=== PATIENT | male | born 1985 | race Two or more races ===

== ENCOUNTER 2018-06-09 09:28 | Emergency (ER) | payer SELFPAY ==
--- NOTE | 2018-06-09 09:50 | NUR ---
Pt to 34 from lobby
[2018-06-09] MEDS ORDERED: RISP2TAB3 PO (10:21)
[2018-06-09] MEDS ORDERED: GERD MEDICATION (10:21)
--- NOTE | 2018-06-09 10:25 | NUR ---
PT TO ED FOR ETOH DETOX, POSSIBLE WITHDRAWALS. PT IS ALSO SELF REPORTED HYPERMANIC AND ANXIOUS. CONNECTED TO MONITORS. VSS. EDMD ASSESSMENT COMPLETE. ORDERS RECEIVED. LABS DRAWN. AWAITING RESULTS.
[2018-06-09] MEDS ORDERED: LORazepam 1MG TABLET ONE (10:29)
[2018-06-09] MEDS ORDERED: LORazepam 1MG TABLET PO ONE (10:30)
[2018-06-09 10:40] LABS: BASOPHILS # (AUTO) 0.05 x10^3/uL (0-0.1); BASOPHILS % (AUTO) 1 % (0-1); EOSINOPHILS # (AUTO) 0.09 x10^3/uL (0-0.4); EOSINOPHILS % (AUTO) 1 % (1-7); LYMPHOCYTES # (AUTO) 2.03 x10^3/uL (1-3.4); LYMPHOCYTES % (AUTO) 19 % (22-44); MD NO; MEAN CORPUSCULAR HGB CONC 34.3 g/dL (33.2-36.2); MEAN CORPUSCULAR VOLUME 96.2 fL (81-97); MEAN PLATELET VOLUME 8.2 fL (7.4-10.4); MONOCYTES # (AUTO) 0.86 x10^3/uL (0.2-0.8); MONOCYTES % (AUTO) 8 % (2-9); NEUTROPHILS % (AUTO) 72 % (42-75); PLATELET COUNT 216 x10^3/uL (130-400); RED BLOOD COUNT 5.04 x10^6/uL (4.38-5.82); RED CELL DISTRIBUTION WIDTH 14.1 % (9.4-14.8)
[2018-06-09 10:50] LABS: ALBUMIN 3.7 g/dL (3.4-5.0); ANION GAP 9 mmol/L (5-15); CALCIUM 8.3 mg/dL (8.5-10.1); CHLORIDE 107 mmol/L (98-107)
[2018-06-09 10:54] LABS: ALANINE AMINOTRANSFERASE 183 U/L (12-78); ALKALINE PHOSPHATASE 161 U/L (45-117); BILIRUBIN,TOTAL 1.2 mg/dL (0.2-1.0); CREATININE 0.63 mg/dL (0.7-1.3)
--- NOTE | 2018-06-09 11:01 | NUR ---
all results back at this time. chart up for recheck.
[2018-06-09 11:20] VITALS: BP 139/83
[2018-06-09] MEDS ORDERED: MAALOX/HYOSCYAMINE/LIDOCAINE 45 ML BTL PO ONE (11:30)
[2018-06-09] MEDS ORDERED: MAALOX/HYOSCYAMINE/LIDOCAINE 45 ML BTL ONE (11:36)
== END 2018-06-09 12:35 | disposition home or self-care (01) ==
LOC: ED 10:45
DX: F10.239 Alcohol dependence with withdrawal, unspecified (principal); R45.1 Restlessness and agitation; F41.9 Anxiety disorder, unspecified; F31.9 Bipolar disorder, unspecified
CPT/HCPCS: 36415; 80053; 83690; 85025; 99283

== ENCOUNTER 2019-05-08 21:23 | Emergency (ER) | payer MEDICAID ==
[~2019-05-08] VITALS: Ht 177.8 cm; Wt 96.3 kg
[~2019-05-08 21:23] MED LIST: GERD MEDICATION; RISP2TAB3 PO
[2019-05-08] MEDS ORDERED: LORazepam 2 MG/ML, 1ML IVPush ONE ×2 (22:00→23:00)
[2019-05-08] MEDS ORDERED: SODIUM CHLORIDE 0.9% 1,000ML IVBOLUS ONE ×2 (22:00→23:00)
[2019-05-08] MEDS ORDERED: LORazepam 2 MG/ML, 1ML ONE (22:02)
[2019-05-08] MEDS ORDERED: OXYcodone/APAP 10/325MG TABLET ONE (22:04)
[2019-05-08 22:14] LABS: ALANINE AMINOTRANSFERASE 276 U/L (12-78); ALBUMIN 3.7 g/dL (3.4-5.0); ANION GAP 11 mmol/L (5-15); CALCIUM 8.6 mg/dL (8.5-10.1); CHLORIDE 101 mmol/L (98-107)
[2019-05-08 22:15] LABS: BASOPHILS # (AUTO) 0.03 x10^3/uL (0-0.1); BASOPHILS % (AUTO) 0 % (0-1); EOSINOPHILS # (AUTO) 0.06 x10^3/uL (0-0.4); EOSINOPHILS % (AUTO) 1 % (1-7); LYMPHOCYTES # (AUTO) 1.14 x10^3/uL (1-3.4); LYMPHOCYTES % (AUTO) 10 % (22-44); MD NO; MEAN CORPUSCULAR HEMOGLOBIN 31.9 pg (27.5-34.5); MEAN CORPUSCULAR HGB CONC 33.9 g/dL (33.2-36.2); MEAN CORPUSCULAR VOLUME 93.9 fL (81-97); MEAN PLATELET VOLUME 9.4 fL (7.4-10.4); MONOCYTES # (AUTO) 0.88 x10^3/uL (0.2-0.8); MONOCYTES % (AUTO) 8 % (2-9); NEUTROPHILS # (AUTO) 8.99 x10^3/uL (1.8-6.8); NEUTROPHILS % (AUTO) 81 % (42-75); PLATELET COUNT 189 x10^3/uL (130-400); RED CELL DISTRIBUTION WIDTH 14.1 % (9.4-14.8)
[2019-05-08 22:17] LABS: ALKALINE PHOSPHATASE 186 U/L (45-117); BILIRUBIN,TOTAL 1.7 mg/dL (0.2-1.0); CREATININE 0.89 mg/dL (0.7-1.3); TOTAL PROTEIN 8.6 g/dL (6.4-8.2)
[2019-05-08 22:18] LABS: SALICYLATE LEVEL < 1.7 mg/dL (2.8-20.0)
--- NOTE | 2019-05-09 00:06 | NUR ---
Pt got up from bed and removed his PIV in the process.
[2019-05-09 00:29] LABS: AMPHETAMINE SCREEN, URINE Positive (Negative); BARBITURATE SCREEN, URINE Negative (Negative); BENZODIAZEPINE SCREEN, URINE Positive (Negative); CANNABINOID SCREEN, URINE Positive (Negative); COCAINE SCREEN, URINE Negative (Negative); METHADONE SCREEN, URINE Negative (Negative); OPIATE SCREEN, URINE Negative (Negative)
[2019-05-09] MEDS ORDERED: ZIPRASIDONE 20 MG INJ IM ONE ×4 (01:13→02:00)
--- NOTE | 2019-05-09 01:37 | NUR ---
pt sitting up on gurney, restless, diaphoretic and anxious. monitors in place, siderail sup x2, call light within reach
--- NOTE | 2019-05-09 01:51 | NUR ---
pt medicated per mar
--- NOTE | 2019-05-09 03:07 | NUR ---
Pt now sleeping.
[2019-05-09 06:04] VITALS: BP 97/77
--- NOTE | 2019-05-09 06:55 | NUR ---
report received from lucina rouse.
--- NOTE | 2019-05-09 08:00 | NUR ---
pt amb to br and back to room with steady gait.
== END 2019-05-09 08:08 | disposition home or self-care (01) ==
LOC: ED 05-09 01:12
DX: F10.129 Alcohol abuse with intoxication, unspecified (principal); F15.129 Other stimulant abuse with intoxication, unspecified; F12.10 Cannabis abuse, uncomplicated; Z72.9 Problem related to lifestyle, unspecified; Y90.0 Blood alcohol level of less than 20 mg/100 ml
CPT/HCPCS: 36415; 80053; 80307; 85025; 93005; 96372; 96374; 96376; 99285; J2060; J3486; J7030

== ENCOUNTER 2019-11-16 08:59 | Emergency (ER) | payer MEDICAID ==
[~2019-11-16] VITALS: Ht 177.8 cm; Wt 98.0 kg
--- NOTE | 2019-11-16 09:20 | NUR ---
BIB [facility] FOR FLANK PAIN, PAINFUL URINATION, AND DETOX SYMPTOMS. PT WORKED UP FOR ALL SYMPTOMS YESTERDAY BTReinaldo FAITH. PT ON LATEX SPOOLER, BP AND SPO2. SPEAKING CLEARLY, IN FULL SENTENCES, AMBULATES EVENLY, ABLE TO AMBULATE INDEPENDENTLY TO BATHROOM FOR UA. CHANGED IN ROOM INDEPENDENTLY. IN GOWN, SIDE RAILS UP, BLANKET IN PLACE, RESIDENT AT BEDSIDE FOR ASSESSMENT.
--- NOTE | 2019-11-16 09:55 | NUR ---
PT REPORT FROM HUGH BUSTILLO. PT CARE TO BE ASSUMED
[2019-11-16] MEDS ORDERED: THIAMINE 100MG TABLET ONE (09:58)
[2019-11-16] MEDS ORDERED: LORazepam 1MG TABLET ONE (09:59)
[2019-11-16] MEDS ORDERED: ONDANSETRON 2MG/ML, 2ML ONE (09:59)
[2019-11-16] MEDS ORDERED: FAMOTIDINE 20 MG/2 ML ONE (09:59)
[2019-11-16] MEDS ORDERED: PANTOPRAZOLE 40 MG IV ONE (09:59)
[2019-11-16] MEDS ORDERED: SODIUM CHLORIDE 0.9% 1,000ML IVBOLUS ONE (10:00)
[2019-11-16] MEDS ORDERED: SODIUM CHLORIDE FLUSH 10ML SYR IVF ONE (10:00)
[2019-11-16] MEDS ORDERED: LORazepam 1MG TABLET PO ONE (10:00)
[2019-11-16] MEDS ORDERED: FAMOTIDINE 20 MG/2 ML IVPush ONE (10:00)
[2019-11-16] MEDS ORDERED: PANTOPRAZOLE 40 MG IV IVPush ONE (10:00)
[2019-11-16] MEDS ORDERED: THIAMINE 100 MG/ML, 2ML IM ONE (10:00)
[2019-11-16] MEDS ORDERED: ONDANSETRON 2MG/ML, 2ML IVPush ONE (10:00)
[2019-11-16] MEDS ORDERED: THIAMINE 100MG TABLET PO ONE (10:30)
[2019-11-16] MEDS ORDERED: GABA300C PO (10:30)
[2019-11-16] MEDS ORDERED: TRAZ-96 PO (10:30)
--- NOTE | 2019-11-16 10:33 | NUR ---
TO U/S PER COMPA
[2019-11-16 10:40] LABS: ALBUMIN 3.2 g/dL (3.4-5.0); ANION GAP 7 mmol/L (5-15); CALCIUM 8.1 mg/dL (8.5-10.1); CHLORIDE 111 mmol/L (98-107); INTERNATIONAL NORMALIZED RATIO 1.34 (0.93-1.1); PROTHROMBIN TIME 13.8 Seconds (9.6-11.5)
[2019-11-16 10:45] LABS: ALANINE AMINOTRANSFERASE 48 U/L (12-78); ALKALINE PHOSPHATASE 181 U/L (45-117); BILIRUBIN,TOTAL 2.4 mg/dL (0.2-1.0); CREATINE KINASE, TOTAL 384 U/L (39-308); CREATININE 0.65 mg/dL (0.7-1.3); TOTAL PROTEIN 8.1 g/dL (6.4-8.2); TROPONIN I < 0.015 ng/mL (0.000-0.045)
[2019-11-16 11:15] LABS: BASOPHILS # (AUTO) 0.03 x10^3/uL (0-0.1); BASOPHILS % (AUTO) 1 % (0-1); EOSINOPHILS # (AUTO) 0.07 x10^3/uL (0-0.4); EOSINOPHILS % (AUTO) 1 % (1-7); LYMPHOCYTES # (AUTO) 1.07 x10^3/uL (1-3.4); LYMPHOCYTES % (AUTO) 18 % (22-44); MD SCAN; MEAN CORPUSCULAR HEMOGLOBIN 33.1 pg (27.5-34.5); MEAN CORPUSCULAR HGB CONC 33.3 g/dL (33.2-36.2); MEAN CORPUSCULAR VOLUME 99.2 fL (81-97); MEAN PLATELET VOLUME 7.4 fL (7.4-10.4); MONOCYTES # (AUTO) 0.45 x10^3/uL (0.2-0.8); MONOCYTES % (AUTO) 8 % (2-9); NEUTROPHILS % (AUTO) 72 % (42-75); PLATELET COUNT 90 x10^3/uL (130-400); RED BLOOD COUNT 4.25 x10^6/uL (4.38-5.82); RED CELL DISTRIBUTION WIDTH 16.3 % (9.4-14.8)
--- NOTE | 2019-11-16 12:00 | NUR ---
PT STANDING AT BS USING URINAL.
[2019-11-16 12:11] VITALS: BP 110/61
== END 2019-11-16 13:04 | disposition home or self-care (01) ==
LOC: ED 09:41
DX: K92.1 Melena (principal); F10.229 Alcohol dependence with intoxication, unspecified; F10.239 Alcohol dependence with withdrawal, unspecified; R11.10 Vomiting, unspecified; R10.9 Unspecified abdominal pain; Y90.0 Blood alcohol level of less than 20 mg/100 ml
CPT/HCPCS: 36415; 71045; 74176; 80053; 82550; 83605; 83690; 84484; 85025; 85610; 85730; 93005; 96361; 96374; 96375; 99285; C9113; J2405; J3490; J7030

== ENCOUNTER 2020-11-04 14:41 | Inpatient (IN) | payer MEDICAID ==
[~2020-11-04] VITALS: Ht 180.3 cm; Wt 83.3 kg
[~2020-11-04 14:41] MED LIST changes: +GABA300C PO; -RISP2TAB3 PO; +RISP2TAB80 PO; +TRAZ-96 PO
[2020-11-04] MEDS ORDERED: SODIUM CHLORIDE 0.9% 1,000ML IVBOLUS ONE ×2 (15:00→17:00)
[2020-11-04] MEDS ORDERED: OLANZAPINE 10 MG TABLET ONE (15:00)
[2020-11-04] MEDS ORDERED: OLANZAPINE 10 MG TABLET PO ONE (15:00)
--- NOTE | 2020-11-04 15:11 | NUR ---
All belongings removed secured to locker, pt provided labs, IVF infusing will provide urine after IVF. Pt has audiotry and visual hallucinations of someone named neida who he thinks is in the room with him. Sitter in line of site. Will continue to monitor.
[2020-11-04 15:17] LABS: BASOPHILS % (AUTO) 1 % (0-1); EOSINOPHILS % (AUTO) 1 % (1-7); LYMPHOCYTES % (AUTO) 9 % (22-44); MEAN CORPUSCULAR HEMOGLOBIN 29.2 pg (27.5-34.5); MEAN CORPUSCULAR HGB CONC 32.8 g/dL (33.2-36.2); MEAN PLATELET VOLUME 8.8 fL (7.4-10.4); MONOCYTES % (AUTO) 12 % (2-9); NEUTROPHILS % (AUTO) 78 % (42-75); PLATELET COUNT 101 x10^3/uL (130-400); RED BLOOD COUNT 3.37 x10^6/uL (4.38-5.82)
[2020-11-04 15:24] LABS: ALBUMIN 3.1 g/dL (3.4-5.0); ANION GAP 11 mmol/L (5-15); CHLORIDE 97 mmol/L (98-107)
[2020-11-04 15:38] LABS: ALANINE AMINOTRANSFERASE 138 U/L (12-78); ALKALINE PHOSPHATASE 211 U/L (45-117); BILIRUBIN,TOTAL 9.9 mg/dL (0.2-1.0); CREATININE 1.13 mg/dL (0.7-1.3); TOTAL PROTEIN 7.9 g/dL (6.4-8.2)
[2020-11-04 15:46] LABS: SALICYLATE LEVEL < 1.7 mg/dL (2.8-20.0)
--- NOTE | 2020-11-04 16:32 | NUR ---
Pt with periods of confusion, eyes are jaundiced, skin jaundiced. Still no UO, x1 NS IVF complete. Informed ERP waiting for further orders.
--- NOTE | 2020-11-04 16:55 | NUR ---
2nd Liter NS infusing wide open, VSS, pt sleeping now wakes up with confusion, paranoia pt is redirectable. POC to admit pt.
--- NOTE | 2020-11-04 17:33 | NUR ---
Pt got up walked into registration area and urinated on the paper shredder. Pt very confused, escorted back to room, IVF infusing. Informed ERP pt will need sitter for admission. Also ammonia level requested to add on for this pt. Pt also with multiple bruises to shoulder arms various levels of healing. Pt also has dried old blood to lips.
--- NOTE | 2020-11-04 17:47 | NUR ---
Pt now placed on 2pt Soft restraints for medical safety, confusion pulling at tubes and lines attempting to get up. ERP informed, CN informed, throughput informed. VSS
--- NOTE | 2020-11-04 18:04 | NUR ---
1800: VSS, assisted lab to draw ammonia. Pt is redirectable. Urine tox is processing in lab. Informed CN, need for sitter.
[2020-11-04 18:38] LABS: AMPHETAMINE SCREEN, URINE Positive (Negative); BARBITURATE SCREEN, URINE Negative (Negative); BENZODIAZEPINE SCREEN, URINE Negative (Negative); CANNABINOID SCREEN, URINE Positive (Negative)
[2020-11-04 18:40] LABS: COCAINE SCREEN, URINE Negative (Negative); METHADONE SCREEN, URINE Negative (Negative); OPIATE SCREEN, URINE Negative (Negative)
--- NOTE | 2020-11-04 19:04 | NUR ---
BEDSIDE REPORT RECEIVED FROM ANALILIA REESE
--- NOTE | 2020-11-04 19:06 | NUR ---
PT SUPINE ON GURNEY, RESTING CALMLY WITH EYES CLOSED. PT AWOKE AND STATES "I HAVE TO PEE, I HAVE TO PEE. PT PROVIDED URINAL AND URINATED WITH NO DIFFICULTY. PT RETURNED TO SLEEP, DENIES ANY ADDITIONAL NEEDS AT THIS TIME. ERP AT BEDSIDE FOR FURTHER EVAL, PT TO BE ADMITTED TO HOSPITAL. SOFT RESTRAINTS REMAIN IN PLACE DUE TO PT WAKING AND PULLING AT LINES AND MONITORING. RESTRAINTS APPLIED APPROPRIATELY, PT DENIES ANY ADDITIONAL NEEDS AT THIS TIME.
[2020-11-04] MEDS ORDERED: LACTULOSE 20 GM/30 ML UDC PO ONE (19:30)
[2020-11-04] MEDS ORDERED: LORazepam 2 MG/ML, 1ML IVPush PRN (19:30)
--- NOTE | 2020-11-04 19:34 | NUR ---
MEDICATION REQUETED FROM PHARMACY
--- NOTE | 2020-11-04 20:43 | NUR ---
Pt to be admitted to MED[facility], room 353. Report called to SWETHA REESE.
[2020-11-04] MEDS: HEPARIN 5,000 UNITS/ML, 1ML SQ SCH (22:00)
[2020-11-04] MEDS ORDERED: THIAMINE 200 MG in DEXTROSE 5% 50 ML IVPB ONE (22:00)
[2020-11-04] MEDS ORDERED: ONDANSETRON 2MG/ML, 2ML IVPush PRN (22:00)
[2020-11-04] MEDS ORDERED: CHLORDIAZEPOXIDE 25 MG CAPSULE PO PRN (22:00)
[2020-11-04] MEDS ORDERED: LORazepam 0.5MG TABLET PO PRN ×2 (22:00→22:30)
[2020-11-04 22:19] LABS: BASOPHILS % (AUTO) 1 % (0-1); EOSINOPHILS % (AUTO) 3 % (1-7); LYMPHOCYTES % (AUTO) 11 % (22-44); MEAN CORPUSCULAR HEMOGLOBIN 29.1 pg (27.5-34.5); MEAN CORPUSCULAR HGB CONC 32.5 g/dL (33.2-36.2); MEAN PLATELET VOLUME 8.6 fL (7.4-10.4); MONOCYTES % (AUTO) 14 % (2-9); NEUTROPHILS % (AUTO) 72 % (42-75); PLATELET COUNT 68 x10^3/uL (130-400); RED BLOOD COUNT 3.06 x10^6/uL (4.38-5.82)
[2020-11-04 22:27] LABS: INTERNATIONAL NORMALIZED RATIO 1.7 (0.93-1.1); PROTHROMBIN TIME 17.7 Seconds (9.6-11.5)
[2020-11-04] MEDS ORDERED: THIAMINE 100MG TABLET PO ONE (22:30)
[2020-11-04] MEDS ORDERED: FOLIC ACID 5 MG/ML IM ONE (22:30)
[2020-11-04] MEDS ORDERED: FOLIC ACID 1 MG TABLET PO ONE (22:30)
[2020-11-04 23:28] VITALS: BP 117/75
[2020-11-04] MEDS: LACTATED RINGERS 1,000 ML IV SCH (23:33)
[2020-11-05] MEDS ORDERED: CHLORDIAZEPOXIDE MC SCH (00:30)
[2020-11-05 01:39] VITALS: BP 133/72
[2020-11-05] MEDS ORDERED: LACTULOSE 10 GM/15 ML UDC PO ONE (03:00)
[2020-11-05] MEDS: LACTATED RINGERS 1,000 ML IV SCH (05:51)
[2020-11-05 06:02] LABS: ALBUMIN 2.6 g/dL (3.4-5.0); ANION GAP 9 mmol/L (5-15); CALCIUM 7.5 mg/dL (8.5-10.1); CHLORIDE 106 mmol/L (98-107)
[2020-11-05 06:05] LABS: ALANINE AMINOTRANSFERASE 108 U/L (12-78); ALKALINE PHOSPHATASE 174 U/L (45-117); BILIRUBIN,TOTAL 10.1 mg/dL (0.2-1.0); CREATININE 0.65 mg/dL (0.7-1.3); TOTAL PROTEIN 6.7 g/dL (6.4-8.2)
[2020-11-05] MEDS: HEPARIN 5,000 UNITS/ML, 1ML SQ SCH (07:23)
[2020-11-05 08:00] VITALS: BP 100/62
[2020-11-05] MEDS ORDERED: LACTULOSE 10 GM/15 ML UDC PO SCH ×2 (09:00)
== END 2020-11-05 10:09 | disposition left against medical advice (07) | DRG 442 ==
LOC: ED 15:00 → 3N 20:48
PROVIDERS: ADMIT Internal Medicine; ATTEND Hospitalist
DX: K72.00 Acute and subacute hepatic failure without coma (principal); E87.1 Hypo-osmolality and hyponatremia; F23 Brief psychotic disorder; R65.10 Systemic inflammatory response syndrome (SIRS) of non-infectious origin without acute organ dysfunction; D72.829 Elevated white blood cell count, unspecified; E86.0 Dehydration; E86.1 Hypovolemia; F10.10 Alcohol abuse, uncomplicated; F12.90 Cannabis use, unspecified, uncomplicated; F17.200 Nicotine dependence, unspecified, uncomplicated; F31.9 Bipolar disorder, unspecified; F41.1 Generalized anxiety disorder; K74.60 Unspecified cirrhosis of liver; R74.01 Elevation of levels of liver transaminase levels
CPT/HCPCS: 36415; 76700; 80053; 80074; 80299; 80307; 80320; 80329; 82140; 83036; 83690; 83735; 84100; 84443; 85025; 85610; 93005; 96374; 99291; G0378; J1644; G0480; J7030; J7120